=== PATIENT | female | born 1995 | race Caucasian/White ===

== ENCOUNTER → 2016-06-17 | Outpatient (CLI) | payer OTHER ==
--- NOTE | 2016-06-17 13:02 | RAD ---
EXAM: Pelvic sonogram. HISTORY: Heavy bleeding. TECHNIQUE: Transabdominal and transvaginal sonographic imaging of the pelvis was performed. COMPARISON: None. FINDINGS: The uterus measures 7.1 x 3.1 x 4.7 cm. The and medial stripe measures 4.5 mm. The right ovary measures 3.2 x 1.8 x 2.3 cm. The left ovary measures 3.3 x 2.7 x 2.4 cm. There is normal blood flow within both ovaries. There are multiple bilateral ovarian follicles. There is a small amount of free fluid within the cul-de-sac. IMPRESSION: 1. Small amount of pelvic free fluid, within physiologic limits. 2. Otherwise, unremarkable pelvic sonogram.
== END | disposition home or self-care (01) ==
LOC: US 12:10
PROVIDERS: ATTEND Obstetrics & Gynecology
DX: N93.9 Abnormal uterine and vaginal bleeding, unspecified (principal)
CPT/HCPCS: 76830; 76856

== ENCOUNTER → 2016-12-03 | Outpatient (CLI) | payer OTHER ==
[~2016-12-03] MED LIST: CONTRAST GIVEN MC PRN; IOHEXOL 240 MG/ML 50ML VIAL. PO ONE; IOHEXOL 300 MG/ML 75 ML VIAL IV ONE
--- NOTE | 2016-12-03 10:06 | RAD ---
Indication: Abdominal cramping and mucous in stools. Axial imaging through the abdomen and pelvis was performed after the administration of intravenous and oral contrast. The lung bases are clear. No discrete liver mass is detected. The gallbladder is unremarkable. The pancreas and spleen are unremarkable. No adrenal mass is detected. The kidneys are unremarkable. The aorta is nonaneurysmal. The small and large bowel loops are normal caliber. There is moderate stool within the colon. The appendix is unremarkable. The bladder and uterus are unremarkable. There is a small amount of free fluid in the pelvis, likely physiologic. Impression: Essentially unremarkable CT of the abdomen and pelvis. PQRS Compliance Statement: One or more of the following individualized dose reduction techniques were utilized for this examination: 1. Automated exposure control 2. Adjustment of the mA and/or kV according to patient size 3. Use of iterative reconstruction technique
== END | disposition home or self-care (01) ==
LOC: CT 07:09
PROVIDERS: ATTEND Nurse Practitioner Family
DX: R10.9 Unspecified abdominal pain (principal); R19.5 Other fecal abnormalities
CPT/HCPCS: 74177; Q9966; Q9967